=== PATIENT | female | born 1970 | race Hispanic/Latino ===

== ENCOUNTER 2025-02-01 05:45 | Day surgery (SDC) | payer OTHER ==
[~2025-02-01] VITALS: Ht 167.6 cm; Wt 81.6 kg
[2025-02-01] VITALS (9 sets, daily range): BP systolic 103–120; BP diastolic 62–74; PULSE 53–68; RESP 16–18; TEMP 97.3–98.5
[~2025-02-01 05:45] MED LIST: ATOR40TA69 PO; LINA290C PO; LISI2.5T13 PO; OMEG100014 PO; TIRZ12.5 SQ; VITAD50000 PO
[2025-02-01] MEDS: 0.9%NACL 1000ML 1,000 ML IV ONE (06:37)
[2025-02-01] MEDS ORDERED: proPOFol 10 MG/ML 20ML VIAL IV ONE (07:02)
== END 2025-02-01 08:20 | disposition home or self-care (01) ==
LOC: ENDO 05:45 → DAH 05:45 → ENDO 08:20
PROVIDERS: ATTEND Internal Medicine Gastroenterology
DX: R93.3 Abnormal findings on diagnostic imaging of other parts of digestive tract (principal); K29.50 Unspecified chronic gastritis without bleeding; B96.81 Helicobacter pylori [H. pylori] as the cause of diseases classified elsewhere; K76.6 Portal hypertension; K31.89 Other diseases of stomach and duodenum; K74.00 Hepatic fibrosis, unspecified; E78.2 Mixed hyperlipidemia; R10.10 Upper abdominal pain, unspecified; I10 Essential (primary) hypertension; E11.9 Type 2 diabetes mellitus without complications; Z79.899 Other long term (current) drug therapy; Z90.49 Acquired absence of other specified parts of digestive tract
CPT/HCPCS: 43239; 82948 ×2; 81025; J7030; J2704; A4620; A4215; A4223; A4222; A4221; A4663; A4606; J3490